=== PATIENT | female | born 1975 | race American Indian/Alaskan Native ===

== ENCOUNTER 2019-05-24 09:36 | Outpatient (CLI) | payer OTHER ==
--- NOTE | 2019-05-24 12:26 | Magnetic Resonance Report ---
MR UE joint RT wo con INDICATION / CLINICAL INFORMATION: M25.531) PAIN IN RIGHT WRIST. TECHNIQUE: Multiplanar, multisequence MR images were obtained. COMPARISON: None available. FINDINGS: Bone marrow signal is within normal limits. Intrinsic ligaments are intact. There is no joint effusio n. Flexor tendons and carpal tunnel are unremarkable. Extensor tendons are unremarkable as well without tenosynovitis. There is a somewhat serpiginous fluid collection adjacent to the radial scaphoid articulation along t he volar aspect of the wrist (coronal T2 images 7-8, axial image 10). This measures approximately 6 m m on coronal image 8. No other fluid collections are seen. There is no significant subcutaneous edema. IMPRESSION: 1. No acute osseous findings. No joint effusion or intrinsic ligament injury is seen. 2. Serpiginous fluid collection along the volar aspect of the radioscaphoid articulation is likely a small ganglion cyst. Signer Name: Obinna Perez MD Signed: 05/24/2019 12:22 PM Workstation Name: [id number]
== END 2019-05-24 09:37 | disposition home or self-care (01) ==
LOC: MRI 09:36
PROVIDERS: ATTEND Orthopaedic Surgery
DX: M25.531 Pain in right wrist (principal)

== ENCOUNTER 2021-12-09 08:31 | Outpatient (CLI) | payer BC, OTHER | END 2021-12-09 08:32 | disposition home or self-care (01) | LOC: MAMMO 08:31 | PROVIDERS: ATTEND Advanced Practice Midwife | DX: Z12.31 Encounter for screening mammogram for malignant neoplasm of breast (principal) | CPT/HCPCS: 77067 ==